=== PATIENT | female | born 1960 | race African-American/Black ===

== ENCOUNTER 2017-06-15 16:40 | Emergency (ER) | payer OTHER ==
[~2017-06-15] VITALS: Ht 167.6 cm; Wt 65.9 kg
[2017-06-15] MEDS ORDERED: HYDROCODONE/ACETAMINOPHEN 5-325 MG TABLET PO ONE ×2 (20:15→21:15)
[2017-06-15] MEDS ORDERED: LIDOCAINE HCL 1% 10 ML VIAL INJ ONE (20:15)
[2017-06-15] MEDS ORDERED: CEPHALEXIN MONOHYDRATE 500 MG CAPSULE PO ONE (21:00)
[2017-06-15] MEDS ORDERED: SULFAMETHOX/TRIMETH DS 800-160 MG/TABLET PO ONE (21:00)
[2017-06-15 21:27] VITALS: BP 137/78
== END 2017-06-15 21:34 | disposition home or self-care (01) ==
LOC: EMS 16:41
DX: L02.811 Cutaneous abscess of head [any part, except face] (principal)
CPT/HCPCS: 10060; 99284; J3490